=== PATIENT | male | born 1965 | race Caucasian/White ===

== ENCOUNTER 2023-09-25 12:38 | Emergency (ER) | payer OTHER, BC ==
[~2023-09-25] VITALS: Ht 180.3 cm; Wt 108.9 kg
[2023-09-25 12:38] VITALS: BP 150/82; PULSE 85; RESP 18; TEMP 98.6; O2SAT 96
[2023-09-25 13:40] VITALS: BP 145/80; PULSE 82; RESP 18; TEMP 98.6; O2SAT 96
== END 2023-09-25 13:40 | disposition home or self-care (01) ==
LOC: ER 12:38
DX: S16.1XXA Strain of muscle, fascia and tendon at neck level, initial encounter (principal); E11.9 Type 2 diabetes mellitus without complications; E78.49 Other hyperlipidemia; Z98.1 Arthrodesis status; V49.40XA Driver injured in collision with unspecified motor vehicles in traffic accident, initial encounter; Y93.89 Activity, other specified; Y92.89 Other specified places as the place of occurrence of the external cause; Y99.8 Other external cause status
CPT/HCPCS: 72040; 72072; 99284